=== PATIENT | female | born 1950 | race Caucasian/White ===

== ENCOUNTER 2016-12-20 04:44 | Emergency (ER) | payer MEDICARE ==
[~2016-12-20] VITALS: Ht 149.9 cm; Wt 58.6 kg
[~2016-12-20 04:44] MED LIST: ALPR0.25 PO; LISI-170 PO; MOME110A2 INH; PRED5POW3 PO; VERA240C2 PO
[2016-12-20] MEDS ORDERED: SODIUM CHLORIDE 0.9% 1,000 ML IV ONE (05:32)
[2016-12-20 05:53] VITALS: BP 123/74
[2016-12-20 06:00] LABS: HEMOGLOBIN 13.7 g/dL (11.7-16.4)
[2016-12-20] MEDS ORDERED: SODIUM CHLORIDE 0.9% 1,000ML IVBOLUS ONE (06:00)
[2016-12-20] MEDS ORDERED: SODIUM CHLORIDE FLUSH 10ML SYR IVF ONE (06:00)
[2016-12-20] MEDS ORDERED: ONDANSETRON 2MG/ML, 2ML IVPush ONE (06:00)
[2016-12-20 06:09] LABS: BLOOD UREA NITROGEN 12 mg/dL (7-18)
[2016-12-20 06:13] LABS: ASPARTATE AMINO TRANSFERASE 14 U/L (15-37)
[2016-12-20] MEDS ORDERED: OMNIPAQUE 350 MG/ML, 100ML BOTTLE ONE (06:54)
== END 2016-12-20 07:59 | disposition home or self-care (01) ==
LOC: ED 05:36
DX: R10.12 Left upper quadrant pain (principal); R10.32 Left lower quadrant pain; I10 Essential (primary) hypertension; J45.909 Unspecified asthma, uncomplicated; K21.9 Gastro-esophageal reflux disease without esophagitis; Z88.6 Allergy status to analgesic agent
CPT/HCPCS: 36415; 74177; 80053; 81003; 83690; 85025; 93005; 96360; 99285; J7030; Q9967

== ENCOUNTER 2017-08-24 12:33 | Emergency (ER) | payer MEDICARE, OTHER ==
[~2017-08-24] VITALS: Ht 149.9 cm; Wt 57.0 kg
[2017-08-24 14:54] VITALS: BP 124/81
== END 2017-08-24 14:57 | disposition home or self-care (01) ==
LOC: ED 14:42
DX: S83.61XA Sprain of the superior tibiofibular joint and ligament, right knee, initial encounter (principal); G89.11 Acute pain due to trauma; I10 Essential (primary) hypertension; V43.52XA Car driver injured in collision with other type car in traffic accident, initial encounter; Y93.89 Activity, other specified; Y92.488 Other paved roadways as the place of occurrence of the external cause; Y99.8 Other external cause status
CPT/HCPCS: 99284

== ENCOUNTER → 2018-09-04 | Outpatient (CLI) | payer MEDICARE ==
[~2018-09-04] MED LIST changes: +CIPR500T87 PO; +FLUT12AE INH; +MONT4GRA PO
== END | disposition home or self-care (01) ==
LOC: CFH 12:54
PROVIDERS: ATTEND Family Medicine
DX: I07.1 Rheumatic tricuspid insufficiency (principal); I10 Essential (primary) hypertension
CPT/HCPCS: 93306

== ENCOUNTER 2019-01-22 09:08 | Emergency (ER) | payer MEDICARE ==
[~2019-01-22] VITALS: Ht 149.9 cm; Wt 56.8 kg
--- NOTE | 2019-01-22 09:20 | NUR ---
CONTACT WITH PT, 68 YR OLD FEMALE HERE WITH C/O "I'VE HAD THIS TUMMY ACHE, I SAW MY DR AND SHE GAVE ME SOME ABX. I HAVE BEEN CONSTIPATED, I HAVENT BEEN FEELING WELL, I TOOK SOME CITRACEL THE OTHER DAY AND FELT BETTER. I DONT HAVE ANY PAIN. I HAVE HAD A BLOCKAGE BEFORE" PT AMB TO BR, ABLE TO PROVIDE URINE SPECIMAN. DR AGUILA AT BEDSIDE TO SYMONE PT
--- NOTE | 2019-01-22 09:57 | NUR ---
PT IN U/X Addendum: 01/22/19 at 0957 by BREA U/S
--- NOTE | 2019-01-22 10:11 | NUR ---
PT RETURN FROM RADIOLOGY, U/S TECH AT BEDSIDE. PT UPDATED ON POC. NO NEEDS EXPRESSED AT THIS TIME.
[2019-01-22 10:19] LABS: MICROSCOPIC AUTO
[2019-01-22 10:21] LABS: CHLORIDE 111 mmol/L (98-107)
[2019-01-22 10:24] LABS: ALBUMIN 3.2 g/dL (3.4-5.0); ANION GAP 6 mmol/L (5-15); CALCIUM 8.7 mg/dL (8.5-10.1)
[2019-01-22 10:24] LABS: CULTURE INDICATED? YES
[2019-01-22 10:29] LABS: ALANINE AMINOTRANSFERASE 19 U/L (12-78); ALKALINE PHOSPHATASE 74 U/L (45-117); BILIRUBIN,TOTAL 0.2 mg/dL (0.2-1.0); CREATININE 0.64 mg/dL (0.55-1.02); TOTAL PROTEIN 6.7 g/dL (6.4-8.2)
[2019-01-22 10:42] LABS: BASOPHILS # (AUTO) 0.02 x10^3/uL (0-0.1); BASOPHILS % (AUTO) 0 % (0-1); EOSINOPHILS # (AUTO) 0.26 x10^3/uL (0-0.4); EOSINOPHILS % (AUTO) 4 % (1-7); LYMPHOCYTES % (AUTO) 15 % (22-44); MD NO; MEAN CORPUSCULAR VOLUME 88.2 fL (80-100); MEAN PLATELET VOLUME 7.7 fL (7.4-10.4); MONOCYTES # (AUTO) 0.35 x10^3/uL (0.2-0.8); MONOCYTES % (AUTO) 5 % (2-9); NEUTROPHILS # (AUTO) 5.73 x10^3/uL (1.8-6.8); NEUTROPHILS % (AUTO) 77 % (42-75); PLATELET COUNT 382 x10^3/uL (130-400); RED BLOOD COUNT 4.78 x10^6/uL (3.82-5.3); RED CELL DISTRIBUTION WIDTH 14.8 % (9.6-15.2)
[2019-01-22 11:04] VITALS: BP 116/72
--- NOTE | 2019-01-22 11:05 | NUR ---
PT SITTING UP ON GURNEY, NO ACUTE DISTRESS NOTED. NO NEEDS EXPRESSED AT THIS TIME. WATING FOR TEST RESULTS.
--- NOTE | 2019-01-22 12:42 | NUR ---
Patient/Caregiver given discharge instructions and they have confirmed that they understand the instructions. Patient ambulatory with steady gait.
== END 2019-01-22 12:43 | disposition home or self-care (01) ==
LOC: ED 11:05
DX: R10.84 Generalized abdominal pain (principal); I10 Essential (primary) hypertension
CPT/HCPCS: 36415; 74021; 76700; 80053; 81001; 83690; 85025; 87086; 93005; 99284

== ENCOUNTER 2019-04-04 22:38 | Inpatient (IN) | payer MEDICARE ==
[~2019-04-04] VITALS: Ht 149.9 cm; Wt 56.0 kg
[2019-04-04] MEDS ORDERED: SODIUM CHLORIDE FLUSH 10ML SYR IVF ONE (23:00)
[2019-04-04] MEDS ORDERED: ONDANSETRON 2MG/ML, 2ML IVPush ONE (23:00)
--- NOTE | 2019-04-04 23:00 | NUR ---
PT TO RAD VIA SONAL
[2019-04-04] MEDS ORDERED: ONDANSETRON 2MG/ML, 2ML ONE (23:06)
[2019-04-04] MEDS ORDERED: MORPHINE SULFATE 4 MG/ML, 1ML ONE (23:07)
[2019-04-04] MEDS: MORPHINE SULFATE 4 MG/ML, 1ML IVPush PRN (23:15)
--- NOTE | 2019-04-04 23:20 | NUR ---
IV access obtained. Pt medicated per NOV. Call light in reach.
[2019-04-04 23:37] LABS: BASOPHILS % (AUTO) 0 % (0-1); EOSINOPHILS # (AUTO) 0.14 x10^3/uL (0-0.4); EOSINOPHILS % (AUTO) 1 % (1-7); LYMPHOCYTES # (AUTO) 1.24 x10^3/uL (1-3.4); LYMPHOCYTES % (AUTO) 8 % (22-44); MD NO; MEAN CORPUSCULAR HEMOGLOBIN 29.9 pg (27.0-34.8); MEAN CORPUSCULAR HGB CONC 33.2 g/dL (32.4-35.8); MEAN CORPUSCULAR VOLUME 90.1 fL (80-100); MEAN PLATELET VOLUME 7.5 fL (7.4-10.4); MONOCYTES % (AUTO) 4 % (2-9); NEUTROPHILS # (AUTO) 14.14 x10^3/uL (1.8-6.8); NEUTROPHILS % (AUTO) 87 % (42-75); PLATELET COUNT 427 x10^3/uL (130-400); RED CELL DISTRIBUTION WIDTH 13.6 % (9.6-15.2)
[2019-04-04 23:48] LABS: ALBUMIN 3.3 g/dL (3.4-5.0); ANION GAP 10 mmol/L (5-15); CALCIUM 8.9 mg/dL (8.5-10.1); CHLORIDE 107 mmol/L (98-107)
[2019-04-04 23:52] LABS: ALANINE AMINOTRANSFERASE 20 U/L (12-78); ALKALINE PHOSPHATASE 98 U/L (45-117); BILIRUBIN,TOTAL 0.5 mg/dL (0.2-1.0); CREATININE 0.77 mg/dL (0.55-1.02)
--- NOTE | 2019-04-05 00:15 | NUR ---
Pt states relief after meds. Resting comfortably. Updated to POC. Call light in reach.
[2019-04-05] MEDS ORDERED: MORPHINE SULFATE 4 MG/ML, 1ML ONE (00:54)
[2019-04-05] MEDS: MORPHINE SULFATE 4 MG/ML, 1ML IVPush PRN (00:59)
[2019-04-05] MEDS ORDERED: MORPHINE SULFATE 4 MG/ML, 1ML IVPush PRN ×3 (01:00→08:00)
[2019-04-05] MEDS ORDERED: ONDANSETRON 2MG/ML, 2ML ONE (01:04)
--- NOTE | 2019-04-05 01:05 | NUR ---
PT REFUSING TO GO TO CT S/T PAIN. PT MEDICATED FOR ABD PAIN PER MAR. PT THEN ASKING FOR MORE NAUSEA MEDS. ORDERS RECEIVED AND PT MEDICATED. CT CALLED AND AWARE PT IS READY.
[2019-04-05] MEDS ORDERED: OMNIPAQUE 350 MG/ML, 100ML BOTTLE ONE (01:28)
--- NOTE | 2019-04-05 01:40 | NUR ---
PT BACK FROM CT. ASSISTED WITH BEDPAN. UA COLLECTED AND SENT. PT STATES PAIN HAS IMPROVED BUT FEELS TO "DIZZY" TO WALK TO BR. PT REQUESTING PO FLUIDS--AWARE SHE IS NPO UNTIL ALL RESULTS BACK. NO FURTHER NEEDS EXPRESSED. CALL LIGHT IN REACH.
[2019-04-05 01:44] LABS: MICROSCOPIC NOT IND
[2019-04-05 01:48] LABS: CULTURE INDICATED? NO
[2019-04-05] MEDS ORDERED: ONDANSETRON 2MG/ML, 2ML IVPush ONE (02:00)
[2019-04-05] MEDS ORDERED: SODIUM CHLORIDE 0.9% 1,000 ML IV ONE ×2 (02:10→08:00)
--- NOTE | 2019-04-05 02:15 | NUR ---
ERP at bedside to recheck.
[2019-04-05] MEDS ORDERED: SODIUM CHLORIDE FLUSH 10ML SYR IVF PRN (02:30)
[2019-04-05] MEDS ORDERED: PROMETHAZINE 25 MG/ML, 1ML IM PRN (02:30)
[2019-04-05] MEDS ORDERED: SODIUM CHLORIDE 0.9% 1,000ML IVBOLUS ONE (02:30)
[2019-04-05] MEDS ORDERED: ONDANSETRON 2MG/ML, 2ML IVPush PRN (02:30)
[2019-04-05 03:00] VITALS: BP 125/71
[2019-04-05 08:23] VITALS: BP 104/57
[2019-04-05] MEDS ORDERED: MIDAZOLAM 1 MG/ML, 2ML ONE (08:42)
[2019-04-05] MEDS ORDERED: FENTANYL PF 250 MCG/5ML ONE (08:43)
[2019-04-05] MEDS ORDERED: LIDOCAINE-MPF 2% ,5ML ONE (08:44)
[2019-04-05] MEDS ORDERED: PROPOFOL 10 MG/ML, 20ML ONE (08:44)
[2019-04-05] MEDS ORDERED: ROCURONIUM 10MG/ML,5ML ONE (08:44)
[2019-04-05] MEDS ORDERED: ROPIvacaine/PF 0.5%, 30 ML ONE (09:23)
[2019-04-05] MEDS ORDERED: KETAMINE 10 MG/ML, 20ML ONE (09:28)
[2019-04-05] MEDS ORDERED: CEFOTETAN 2 GM ONE (09:28)
[2019-04-05] MEDS ORDERED: DEXAMETHASONE 4 MG/ML, 1ML ONE (09:28)
[2019-04-05] MEDS ORDERED: PHENYLEPHRINE 10 MG/ML ONE (09:28)
[2019-04-05] MEDS ORDERED: SUGAMMADEX 200 MG/2 ML IVPush ONE (09:28)
[2019-04-05] MEDS ORDERED: HALOPERIDOL 5 MG/ML IV PRN (11:00)
[2019-04-05] MEDS ORDERED: ACETAMINOPHEN 325 MG TABLET PO PRN (11:00)
[2019-04-05] MEDS ORDERED: MEPERIDINE/PF 25MG/0.5ML IVPush PRN (11:00)
[2019-04-05] MEDS ORDERED: PROMETHAZINE 25 MG/ML, 1ML IV PRN (11:00)
[2019-04-05] MEDS ORDERED: hydrALAzine 20 MG/ML, 1ML IV PRN (11:00)
[2019-04-05] MEDS ORDERED: OXYcodone 5 MG/5 ML ORAL.SOL UDC PO PRN (11:00)
[2019-04-05] MEDS ORDERED: ALBUTEROL SULFATE 2.5 MG/3 ML NPPB PRN (11:00)
[2019-04-05] MEDS ORDERED: FENTANYL PF 100 MCG/2ML IV PRN (11:00)
[2019-04-05] MEDS ORDERED: HYDROmorphone 2 MG/ML, 1ML ONE (11:36)
[2019-04-05] MEDS: HYDROmorphone 2 MG/ML, 1ML IVPush PRN ×4 (12:19→12:42)
[2019-04-05 13:19] VITALS: BP 114/61
[2019-04-05] MEDS: D5%-0.45NACL+KCL 20MEQ 1,000 ML IV SCH (15:23)
[2019-04-05] MEDS: METRONIDAZOLE PMX 500MG/100ML 100 ML IV SCH ×2 (15:23→23:40)
[2019-04-05 20:00] VITALS: BP 121/77
[2019-04-05] MEDS: CEFOTETAN PMX 1GM/50ML 50 ML IV SCH (21:37)
[2019-04-05 23:45] VITALS: BP 106/57
[2019-04-06] MEDS: D5%-0.45NACL+KCL 20MEQ 1,000 ML IV SCH ×2 (02:39→18:34)
[2019-04-06 03:59] VITALS: BP 108/61
[2019-04-06 04:41] LABS: MEAN CORPUSCULAR HEMOGLOBIN 29.2 pg (27.0-34.8); MEAN CORPUSCULAR HGB CONC 32.3 g/dL (32.4-35.8); MEAN CORPUSCULAR VOLUME 90.3 fL (80-100); MEAN PLATELET VOLUME 7.6 fL (7.4-10.4); PLATELET COUNT 387 x10^3/uL (130-400); RED BLOOD COUNT 4.59 x10^6/uL (3.82-5.3); RED CELL DISTRIBUTION WIDTH 14.2 % (9.6-15.2)
[2019-04-06 04:47] LABS: ALBUMIN 2.1 g/dL (3.4-5.0); ANION GAP 6 mmol/L (5-15); CALCIUM 7.6 mg/dL (8.5-10.1); CHLORIDE 111 mmol/L (98-107)
[2019-04-06 04:53] LABS: ALANINE AMINOTRANSFERASE 15 U/L (12-78); ALKALINE PHOSPHATASE 59 U/L (45-117); BILIRUBIN,TOTAL 0.3 mg/dL (0.2-1.0); TOTAL PROTEIN 5.4 g/dL (6.4-8.2)
[2019-04-06 05:18] LABS: BASOPHILS % (AUTO) 0 % (0-1); EOSINOPHILS % (AUTO) 0 % (1-7); LYMPHOCYTES # (AUTO) 0.82 x10^3/uL (1-3.4); LYMPHOCYTES % (AUTO) 5 % (22-44); MD SCAN; MONOCYTES # (AUTO) 0.81 x10^3/uL (0.2-0.8); MONOCYTES % (AUTO) 5 % (2-9); NEUTROPHILS # (AUTO) 13.66 x10^3/uL (1.8-6.8); NEUTROPHILS % (AUTO) 89 % (42-75)
[2019-04-06] MEDS: ONDANSETRON 2MG/ML, 2ML IV PRN ×3 (06:31→21:21)
[2019-04-06] MEDS: METRONIDAZOLE PMX 500MG/100ML 100 ML IV SCH ×3 (07:44→23:27)
[2019-04-06] MEDS: MONTELUKAST 4 MG TAB.CHEW PO SCH (07:44)
[2019-04-06 07:45] VITALS: BP 118/61
[2019-04-06] MEDS ORDERED: SODIUM CHLORIDE 0.9% 1,000 ML IV SCH (09:30)
[2019-04-06] MEDS: CEFOTETAN PMX 1GM/50ML 50 ML IV SCH ×2 (09:36→21:16)
[2019-04-06] MEDS: ENOXAPARIN 30 MG/0.3 ML SQ SCH ×2 (09:38→21:16)
[2019-04-06 14:52] VITALS: BP 119/64
[2019-04-06 18:48] VITALS: BP 138/72
[2019-04-07 01:57] VITALS: BP 117/65
[2019-04-07] MEDS: D5%-0.45NACL+KCL 20MEQ 1,000 ML IV SCH ×2 (04:11→14:39)
[2019-04-07 05:22] LABS: BASOPHILS # (AUTO) 0.03 x10^3/uL (0-0.1); BASOPHILS % (AUTO) 0 % (0-1); EOSINOPHILS # (AUTO) 0.02 x10^3/uL (0-0.4); EOSINOPHILS % (AUTO) 0 % (1-7); LYMPHOCYTES # (AUTO) 0.94 x10^3/uL (1-3.4); LYMPHOCYTES % (AUTO) 9 % (22-44); MD NO; MEAN CORPUSCULAR HEMOGLOBIN 29.9 pg (27.0-34.8); MEAN CORPUSCULAR VOLUME 90.7 fL (80-100); MEAN PLATELET VOLUME 7.6 fL (7.4-10.4); MONOCYTES % (AUTO) 4 % (2-9); NEUTROPHILS # (AUTO) 8.85 x10^3/uL (1.8-6.8); NEUTROPHILS % (AUTO) 86 % (42-75); PLATELET COUNT 310 x10^3/uL (130-400); RED CELL DISTRIBUTION WIDTH 14.1 % (9.6-15.2)
[2019-04-07 05:30] LABS: ANION GAP 6 mmol/L (5-15); CALCIUM 7.5 mg/dL (8.5-10.1); CHLORIDE 108 mmol/L (98-107)
[2019-04-07 05:32] LABS: CREATININE 0.64 mg/dL (0.55-1.02)
[2019-04-07 07:16] VITALS: BP 147/76
[2019-04-07] MEDS: METRONIDAZOLE PMX 500MG/100ML 100 ML IV SCH ×3 (08:08→23:33)
[2019-04-07] MEDS: ONDANSETRON 2MG/ML, 2ML IV PRN ×2 (09:19→18:47)
[2019-04-07] MEDS: ENOXAPARIN 30 MG/0.3 ML SQ SCH ×2 (09:19→21:02)
[2019-04-07] MEDS: CEFOTETAN PMX 1GM/50ML 50 ML IV SCH ×2 (09:20→21:03)
[2019-04-07] MEDS: MONTELUKAST 4 MG TAB.CHEW PO SCH (09:21)
[2019-04-07 14:51] VITALS: BP 141/79
[2019-04-07 19:26] VITALS: BP 138/73
[2019-04-08] MEDS: D5%-0.45NACL+KCL 20MEQ 1,000 ML IV SCH ×2 (01:00→13:32)
[2019-04-08] MEDS: ONDANSETRON 2MG/ML, 2ML IV PRN ×2 (01:12→19:32)
[2019-04-08 01:22] VITALS: BP 150/71
[2019-04-08 04:57] LABS: BASOPHILS # (AUTO) 0.02 x10^3/uL (0-0.1); BASOPHILS % (AUTO) 0 % (0-1); EOSINOPHILS # (AUTO) 0.07 x10^3/uL (0-0.4); EOSINOPHILS % (AUTO) 1 % (1-7); LYMPHOCYTES # (AUTO) 0.92 x10^3/uL (1-3.4); LYMPHOCYTES % (AUTO) 10 % (22-44); MD NO; MEAN CORPUSCULAR HEMOGLOBIN 29.9 pg (27.0-34.8); MEAN CORPUSCULAR HGB CONC 32.9 g/dL (32.4-35.8); MEAN CORPUSCULAR VOLUME 90.8 fL (80-100); MEAN PLATELET VOLUME 7.3 fL (7.4-10.4); MONOCYTES # (AUTO) 0.33 x10^3/uL (0.2-0.8); MONOCYTES % (AUTO) 4 % (2-9); NEUTROPHILS # (AUTO) 7.91 x10^3/uL (1.8-6.8); NEUTROPHILS % (AUTO) 86 % (42-75); PLATELET COUNT 316 x10^3/uL (130-400); RED CELL DISTRIBUTION WIDTH 13.7 % (9.6-15.2)
[2019-04-08 05:08] LABS: ANION GAP 5 mmol/L (5-15); CALCIUM 7.7 mg/dL (8.5-10.1); CHLORIDE 107 mmol/L (98-107); CREATININE 0.61 mg/dL (0.55-1.02)
[2019-04-08 08:00] VITALS: BP 138/70
[2019-04-08] MEDS: METRONIDAZOLE PMX 500MG/100ML 100 ML IV SCH ×2 (08:06→15:30)
[2019-04-08] MEDS: MONTELUKAST 4 MG TAB.CHEW PO SCH (08:07)
[2019-04-08] MEDS: LISINOPRIL 10 MG TABLET PO SCH (08:07)
[2019-04-08] MEDS: DOCUSATE 100 MG CAPSULE PO SCH ×2 (08:14→21:33)
[2019-04-08] MEDS: ENOXAPARIN 30 MG/0.3 ML SQ SCH ×2 (10:13→21:33)
[2019-04-08] MEDS: CEFOTETAN PMX 1GM/50ML 50 ML IV SCH ×2 (10:14→21:33)
[2019-04-08 14:05] VITALS: BP 149/83
[2019-04-08 19:56] VITALS: BP 141/82
[2019-04-08] MEDS: LORazepam 2 MG/ML, 1ML IV PRN (21:57)
[2019-04-09] MEDS: METRONIDAZOLE PMX 500MG/100ML 100 ML IV SCH ×3 (00:09→17:23)
[2019-04-09] MEDS: D5%-0.45NACL+KCL 20MEQ 1,000 ML IV SCH ×3 (00:09→18:32)
[2019-04-09 01:29] VITALS: BP 158/88
[2019-04-09] MEDS: ONDANSETRON 2MG/ML, 2ML IV PRN ×3 (05:20→23:36)
[2019-04-09] MEDS: MORPHINE SULFATE 4 MG/ML, 1ML IVPush PRN ×3 (05:21→22:57)
[2019-04-09 07:06] VITALS: BP 138/79
[2019-04-09] MEDS: LORazepam 2 MG/ML, 1ML IV PRN (07:37)
[2019-04-09] MEDS: CEFOTETAN PMX 1GM/50ML 50 ML IV SCH ×2 (09:08→22:10)
[2019-04-09] MEDS: ENOXAPARIN 30 MG/0.3 ML SQ SCH ×2 (09:08→22:10)
[2019-04-09] MEDS: LISINOPRIL 10 MG TABLET PO SCH (09:08)
[2019-04-09] MEDS: MONTELUKAST 4 MG TAB.CHEW PO SCH (09:08)
[2019-04-09] MEDS: DOCUSATE 100 MG CAPSULE PO SCH ×2 (09:08→22:10)
[2019-04-09] MEDS ORDERED: BISACODYL 10 MG SUPP PR ONE (11:00)
[2019-04-09] MEDS ORDERED: BISACODYL 10 MG SUPP PR PRN (11:00)
[2019-04-09 13:44] VITALS: BP 142/82
[2019-04-09 19:08] VITALS: BP 152/83
[2019-04-10] MEDS: METRONIDAZOLE PMX 500MG/100ML 100 ML IV SCH ×3 (00:16→15:51)
[2019-04-10 02:38] VITALS: BP 155/83
[2019-04-10] MEDS: D5%-0.45NACL+KCL 20MEQ 1,000 ML IV SCH (04:36)
[2019-04-10 06:38] VITALS: BP 145/85
[2019-04-10] MEDS: MONTELUKAST 4 MG TAB.CHEW PO SCH (08:16)
[2019-04-10] MEDS: DOCUSATE 100 MG CAPSULE PO SCH ×2 (08:16→21:49)
[2019-04-10] MEDS: LISINOPRIL 10 MG TABLET PO SCH (08:16)
[2019-04-10] MEDS ORDERED: OXYcodone/APAP 5/325MG TABLET PO PRN (09:00)
[2019-04-10] MEDS ORDERED: BISACODYL 10 MG SUPP PR ONE (09:00)
[2019-04-10] MEDS: ENOXAPARIN 30 MG/0.3 ML SQ SCH ×2 (09:31→21:49)
[2019-04-10] MEDS: SODIUM CHLORIDE FLUSH 10ML SYR IVF SCH ×2 (09:32→21:00)
[2019-04-10] MEDS: CEFOTETAN PMX 1GM/50ML 50 ML IV SCH ×2 (10:56→21:48)
[2019-04-10 13:33] VITALS: BP 135/83
[2019-04-10] MEDS: ONDANSETRON 2MG/ML, 2ML IV PRN ×2 (16:26→22:36)
[2019-04-10 19:22] VITALS: BP 135/75
[2019-04-11] MEDS: METRONIDAZOLE PMX 500MG/100ML 100 ML IV SCH ×4 (00:11→23:49)
[2019-04-11 01:58] VITALS: BP 137/76
[2019-04-11 04:38] LABS: BASOPHILS # (AUTO) 0.01 x10^3/uL (0-0.1); BASOPHILS % (AUTO) 0 % (0-1); EOSINOPHILS # (AUTO) 0.11 x10^3/uL (0-0.4); EOSINOPHILS % (AUTO) 1 % (1-7); LYMPHOCYTES % (AUTO) 12 % (22-44); MD NO; MEAN CORPUSCULAR HEMOGLOBIN 29.8 pg (27.0-34.8); MEAN CORPUSCULAR HGB CONC 33.3 g/dL (32.4-35.8); MEAN CORPUSCULAR VOLUME 89.4 fL (80-100); MEAN PLATELET VOLUME 6.7 fL (7.4-10.4); MONOCYTES # (AUTO) 0.66 x10^3/uL (0.2-0.8); MONOCYTES % (AUTO) 7 % (2-9); NEUTROPHILS # (AUTO) 7.28 x10^3/uL (1.8-6.8); NEUTROPHILS % (AUTO) 79 % (42-75); PLATELET COUNT 410 x10^3/uL (130-400); RED BLOOD COUNT 4.21 x10^6/uL (3.82-5.3)
[2019-04-11 04:46] LABS: ANION GAP 6 mmol/L (5-15); CALCIUM 7.9 mg/dL (8.5-10.1); CHLORIDE 108 mmol/L (98-107)
[2019-04-11 04:48] LABS: CREATININE 0.59 mg/dL (0.55-1.02)
[2019-04-11] MEDS: MONTELUKAST 4 MG TAB.CHEW PO SCH (07:53)
[2019-04-11] MEDS: LISINOPRIL 10 MG TABLET PO SCH (07:58)
[2019-04-11] MEDS: SODIUM CHLORIDE FLUSH 10ML SYR IVF SCH ×2 (07:58→20:42)
[2019-04-11] MEDS: DOCUSATE 100 MG CAPSULE PO SCH ×2 (07:58→20:42)
[2019-04-11 07:59] VITALS: BP 158/83
[2019-04-11] MEDS: CEFOTETAN PMX 1GM/50ML 50 ML IV SCH ×2 (09:59→22:02)
[2019-04-11] MEDS: ENOXAPARIN 30 MG/0.3 ML SQ SCH ×2 (09:59→22:01)
[2019-04-11] MEDS: KETOROLAC 30 MG/1 ML IV SCH ×2 (10:47→22:11)
[2019-04-11 13:23] VITALS: BP 112/67
[2019-04-11 19:07] VITALS: BP 121/67
[2019-04-12 02:09] VITALS: BP 143/77
[2019-04-12 06:03] LABS: CHLORIDE 111 mmol/L (98-107)
[2019-04-12 06:20] LABS: CALCIUM 7.6 mg/dL (8.5-10.1); CREATININE 0.61 mg/dL (0.55-1.02)
[2019-04-12 06:42] VITALS: BP 158/69
[2019-04-12 07:10] LABS: ANION GAP 8 mmol/L (5-15)
[2019-04-12] MEDS: DOCUSATE 100 MG CAPSULE PO SCH (08:35)
[2019-04-12] MEDS: KETOROLAC 30 MG/1 ML IV SCH (08:35)
[2019-04-12] MEDS: SODIUM CHLORIDE FLUSH 10ML SYR IVF SCH (08:36)
[2019-04-12] MEDS: ENOXAPARIN 30 MG/0.3 ML SQ SCH (08:36)
[2019-04-12] MEDS: MONTELUKAST 4 MG TAB.CHEW PO SCH (08:36)
[2019-04-12] MEDS: LISINOPRIL 10 MG TABLET PO SCH (08:36)
== END 2019-04-12 11:50 | disposition home or self-care (01) | DRG 331 ==
LOC: ED 23:02 → EDIP 04-05 02:10 → 4NOR 04-05 02:42 → ED 04-05 02:44 → 4NOR 04-05 02:46 → DCLOUNGE 04-12 11:45
PROVIDERS: ADMIT Surgery; ATTEND Surgery
PROC: 0DBK0ZZ Excision of Ascending Colon, Open Approach (ICD-10-PCS; 2019-04-05)
PROC: 3E0T3BZ Introduction of Anesthetic Agent into Peripheral Nerves and Plexi, Percutaneous Approach (ICD-10-PCS; 2019-04-05)
PROC: 0W9G0ZZ Drainage of Peritoneal Cavity, Open Approach (ICD-10-PCS; 2019-04-05)
PROC: 0DTH0ZZ Resection of Cecum, Open Approach (ICD-10-PCS; principal; 2019-04-05 09:30)
DX: K56.50 Intestinal adhesions [bands], unspecified as to partial versus complete obstruction (principal); F41.9 Anxiety disorder, unspecified; I10 Essential (primary) hypertension; J45.909 Unspecified asthma, uncomplicated; K57.90 Diverticulosis of intestine, part unspecified, without perforation or abscess without bleeding; K21.9 Gastro-esophageal reflux disease without esophagitis; Z80.3 Family history of malignant neoplasm of breast; Z80.8 Family history of malignant neoplasm of other organs or systems
CPT/HCPCS: 36415; 74022; 74177; 80048; 80053; 81003; 83690; 85025; 87070; 87075; 87205; 88307; 96374; 96375; 96376; G0378; J1100; J1170; J1650; J1885; J2250; J2270; J2405; J2550; J2704; J2795; J3010; Q9967; J2060; J2370; J3480; J3490; J7030

== ENCOUNTER 2021-01-12 08:14 | Observation (INO) | payer MEDICARE ==
[~2021-01-12] VITALS: Ht 149.9 cm; Wt 59.3 kg
--- NOTE | 2021-01-12 08:25 | NUR ---
THIS IS A 70 YO F BIB EMS W/ C/O SYNCOPE EPISODE THIS MORNING WHILE STANDING UP. PER EMS PT WAS HYPOTENSIVE ON SCENE 78/51. HYPOTENSION RESOLVED S/P 1L NS BOLUS OPTICAL GLASS SAWYER. PIVX2 OPTICAL GLASS SAWYER. PT REPORTS HX OF AFIB W/ NO MEDS, WELL HTN, ASTHMA, DIVERTICULITIS. PT REPORTS NAUSEA THIS MORNING WHICH HAS RESOLVED S/P EMS GEOMETRY TUTOR. PT ALSO REPORTS LT FOOT PAIN 5/10 AND MINIMAL ABD CRAMPING. PT RESTING ON GURNEY W/ CALL LIGHT IN REACH AND SIDE RAILS UPX2. BP 95/42, OTHER VS WDL. NADN. LAB AT BEDSIDE.
--- NOTE | 2021-01-12 08:26 | NUR ---
PT HAD EPISODE OF BOWEL/BLADDER INCONTINENCE W/ SYNCOPE. PT CLEANED UP AND CHANGED INTO GOWN.
--- NOTE | 2021-01-12 08:35 | NUR ---
PER NO IVF INDICATED AT THIS TIME. PT RECEIEVED 1L NS BOLUS [employer].
[2021-01-12 08:39] LABS: BASOPHILS % (AUTO) 1 % (0-1); EOSINOPHILS % (AUTO) 3 % (1-7); LYMPHOCYTES % (AUTO) 11 % (22-44); MEAN CORPUSCULAR HEMOGLOBIN 30.5 pg (27.0-34.8); MEAN CORPUSCULAR HGB CONC 33.1 g/dL (32.4-35.8); MONOCYTES % (AUTO) 4 % (2-9); NEUTROPHILS % (AUTO) 82 % (42-75); PLATELET COUNT 325 x10^3/uL (130-400); RED BLOOD COUNT 4.63 x10^6/uL (3.82-5.3); RED CELL DISTRIBUTION WIDTH 13.7 % (9.6-15.2)
--- NOTE | 2021-01-12 08:44 | NUR ---
PT TO CT.
--- NOTE | 2021-01-12 08:47 | NUR ---
REPORT TO SHIKHA PEREZ. PT STILL IN CT.
[2021-01-12 08:51] LABS: ALANINE AMINOTRANSFERASE 17 U/L (12-78); ANION GAP 8 mmol/L (5-15); CALCIUM 7.7 mg/dL (8.5-10.1); CHLORIDE 117 mmol/L (98-107); CREATININE 0.89 mg/dL (0.55-1.02)
[2021-01-12 09:00] LABS: MD NO
[2021-01-12 09:02] LABS: ALKALINE PHOSPHATASE 68 U/L (45-117); BILIRUBIN,TOTAL 0.4 mg/dL (0.2-1.0); TOTAL PROTEIN 5.5 g/dL (6.4-8.2); TROPONIN I < 0.015 ng/mL (0.000-0.045)
[2021-01-12] MEDS ORDERED: SODIUM CHLORIDE 0.9% 1,000 ML IV SCH (09:30)
[2021-01-12 09:40] LABS: MICROSCOPIC AUTO
[2021-01-12] MEDS ORDERED: CEFTRIAXONE 1,000 MG in DEXTROSE 5% 50 ML IVPB ONE (11:00)
[2021-01-12] MEDS ORDERED: BUPR-173 PO (11:17)
[2021-01-12] MEDS ORDERED: SERT50TA28 PO (11:17)
--- NOTE | 2021-01-12 11:29 | NUR ---
DR CARDONA BEDSIDE
--- NOTE | 2021-01-12 11:59 | NUR ---
REPORT TO ANA GARZA
[2021-01-12] MEDS ORDERED: TRAZODONE 50MG TABLET PO PRN (12:00)
[2021-01-12] MEDS ORDERED: ONDANSETRON 2MG/ML, 2ML IVPush PRN (12:00)
[2021-01-12] MEDS ORDERED: ACETAMINOPHEN 325 MG TABLET PO PRN (12:00)
[2021-01-12] MEDS ORDERED: DOCUSATE 100 MG CAPSULE PO PRN (12:00)
[2021-01-12] MEDS ORDERED: ONDANSETRON ODT 4 MG PO PRN (12:00)
[2021-01-12] MEDS ORDERED: POTASSIUM CHLORIDE 20 MEQ TAB.ER.PRT PO ONE (12:00)
[2021-01-12] MEDS: SODIUM CHLORIDE 0.9% 1,000 ML IV SCH ×2 (13:31→23:45)
[2021-01-12 13:37] VITALS: BP 109/65
[2021-01-12 13:39] VITALS: BP 128/76
[2021-01-12 13:40] VITALS: BP 135/84
[2021-01-12 19:50] VITALS: BP 116/63
[2021-01-13 01:51] VITALS: BP 112/60
[2021-01-13 05:23] LABS: BASOPHILS % (AUTO) 0 % (0-1); EOSINOPHILS % (AUTO) 3 % (1-7); LYMPHOCYTES % (AUTO) 19 % (22-44); MEAN CORPUSCULAR HEMOGLOBIN 30.3 pg (27.0-34.8); MEAN CORPUSCULAR HGB CONC 33.2 g/dL (32.4-35.8); MEAN PLATELET VOLUME 7.5 fL (7.4-10.4); MONOCYTES % (AUTO) 7 % (2-9); NEUTROPHILS % (AUTO) 71 % (42-75); PLATELET COUNT 258 x10^3/uL (130-400); RED BLOOD COUNT 4.21 x10^6/uL (3.82-5.3); RED CELL DISTRIBUTION WIDTH 13.9 % (9.6-15.2)
[2021-01-13 05:32] LABS: ANION GAP 6 mmol/L (5-15); CALCIUM 7.7 mg/dL (8.5-10.1); CHLORIDE 118 mmol/L (98-107); CREATININE 0.64 mg/dL (0.55-1.02)
[2021-01-13 05:42] LABS: MD NO
[2021-01-13 07:15] VITALS: BP 114/71
[2021-01-13] MEDS ORDERED: CIPR250T27 PO (07:17)
[2021-01-13] MEDS ORDERED: CEFTRIAXONE 1,000 MG in DEXTROSE 5% 50 ML IVPB SCH (07:30)
== END 2021-01-13 12:15 | disposition home or self-care (01) ==
LOC: ED 09:25 → INTOOBSV 10:52 → EDIP 10:52 → SUATTDRO 11:16 → 4WST 12:14 → DCLOUNGE 01-13 12:03
PROVIDERS: ADMIT Internal Medicine; ATTEND Hospitalist
DX: I95.9 Hypotension, unspecified (principal); E86.0 Dehydration; N39.0 Urinary tract infection, site not specified; S90.32XA Contusion of left foot, initial encounter; I10 Essential (primary) hypertension; J45.909 Unspecified asthma, uncomplicated; F41.8 Other specified anxiety disorders; I48.91 Unspecified atrial fibrillation; K21.9 Gastro-esophageal reflux disease without esophagitis; Z79.899 Other long term (current) drug therapy; W18.30XA Fall on same level, unspecified, initial encounter; Y93.89 Activity, other specified; Y92.89 Other specified places as the place of occurrence of the external cause
CPT/HCPCS: 36415; 70450; 71045; 73630; 80048; 80053; 81001; 83690; 83735; 84443; 84484; 85025; 87040; 87086; 93005; 96361; 96365; 96366; 99285; G0378; J0696; J7030